=== PATIENT | female | born 1960 | race African-American/Black ===

== ENCOUNTER → 2016-04-18 | Emergency (ER) | payer OTHER ==
[~2016-04-18] VITALS: Ht 157.5 cm; Wt 77.0 kg
[~2016-04-18] MED LIST: ALBU8.5H2; ASPIRIN 81 MG CHEW (CHILDREN'S ASA) PO ONE; HYDR-3702 PO; KETOROLAC 30 MG/ML (TORADOL) 1 ML VIAL IV ONE; NITROGLYCERIN SUBLINGUAL 0.4 MG (NITROQUICK) TABLET SL ONE; TIOT18CA
--- OUTSIDE RECORDS SUMMARY | 2016-04-18 16:48 | XMS REPORT | Summary of Care ---
Author Author Kassi Garcia Organization Unknown Address [address] [place] [address] Phone Unavailable Care Team Providers Care Angular Developer Name Role Phone Kassi Garcia Unavailable Unavailable Unavailable Unavailable Functional Status Functional Status Health Issues Name Dates Details Functional status health issues are not documented Status: Cognitive Status Health Issues Name Dates Details Cognitive status health issues are not documented Status: Problems Name Dates Details Chronic obstructive pulmonary disease (496, J44.9) Status: Active Medications Name Dates Details ProAir HFA 108 (90 Base) MCG/ACT Inhalation Aerosol Solution inhale 1 to 2 puffs every 4 to 6 hours as needed. Quantity: 3 Refills: 3 Kassi Armando Started 13-May-2013 Active8.5 GM Inhaler Spiriva HandiHaler 18 MCG Inhalation Capsule INHALE CONTENTS OF 1 CAPSULE ONCE DAILY. Quantity: 3 Refills: 3 Kassi Armando Started 13-May-2013 [id number] Capsule Box Allergies and Adverse Reactions Name Dates Details No Known Drug Allergies Status: Active Procedures Procedure Dates Details Procedures not documented Immunization Name Dates Details Immunizations not documented Family History Unknown Family Member Name Dates Details No pertinent family history Comments: Family History Status: Active Social History Smoking StatusUnknown if ever smoked Vital Signs Date Test Result Details 14:42 BP Systolic 152 mm[Hg] Status: BP Diastolic 92 mm[Hg] Status: Heart Rate 88 /min Status: Weight 150 lb Status: O2 SAT 97 % Status: Body Mass Index Calculated 27.44 kg/m2 Status: Body Surface Area Calculated 1.69 m2 Status: Results Date Description Value Details Results not documented Plan of Care Planned Observations Name Dates Details Planned Goals not documented Goal Instructions Instructions not documented Encounters Appointment; Cheo Pimentel Encounter Diagnosis: Problem not documented On 14:30 Appointment; Cheo Pimentel Encounter Diagnosis: Problem not documented On 10-Mar-2014 14:30 Appointment; Cheo Pimentel Encounter Diagnosis: Problem not documented On 19-Aug-2013 13:30 Appointment; Cheo Pimentel Encounter Diagnosis: Problem not documented On 13-May-2013 13:00
[2016-04-18] MEDS: NITROGLYCERIN SUBLINGUAL 0.4 MG (NITROQUICK) TABLET SL PRN ×3 (17:28→18:05)
[2016-04-18 17:46] LABS: BASOPHILS % (AUTO) 0 % (0-2); EOSINOPHILS # (AUTO) 0.1 10^3uL; EOSINOPHILS % (AUTO) 2 % (0-4); LYMPHOCYTES # (AUTO) 2.4 X10^3; MEAN CORPUSCULAR HGB CONC 32.2 g/dL (31.0-37.0); MEAN PLATELET VOLUME 10.4 FL (6.0-9.5); MONOCYTES # (AUTO) 0.8 X10^3; MONOCYTES % (AUTO) 10 % (3-11); NEUTROPHILS # (AUTO) 4.8 X10^3; NEUTROPHILS % (AUTO) 58 % (51-67); PLATELET COUNT 270 10^3uL (150-450)
[2016-04-18 17:56] LABS: ALBUMIN 4.6 g/dL (3.4-5.0); ALKALINE PHOSPHATASE 97 U/L (38-126); BUN/CREATININE RATIO 14 (10-20); CALCULATED IONIZED CALCIUM 3.8 mg/dL (3.8-4.6); TOTAL PROTEIN 9.5 g/dL (6.4-8.5)
[2016-04-18 17:58] LABS: MEAN CORPUSCULAR HEMOGLOBIN 25.4 PG (26.0-34.0); MEAN CORPUSCULAR VOLUME 79 FL (80-100)
--- NOTE | 2016-04-18 18:07 | Diagnostic Imaging Report ---
INDICATION: Chest pain. Comparison with 08/19/2013. FINDINGS: The lungs are well-aerated. No infiltrates have developed. The heart is not enlarged. No pulmonary edema. No hilar adenopathy. No pneumothorax or pleural effusion. IMPRESSION: Normal portable chest. Dictated by: Dictated on workstation # [id number]
--- NOTE | 2016-04-18 19:02 | NUR ---
REPORT FROM Margot GRAYSON AND ASSUME CARE OF PT
--- NOTE | 2016-04-18 19:02 | NUR ---
Report given to Elida Corrales RN
--- NOTE | 2016-04-18 19:10 | NUR ---
CHANGED IV TUBING TO PRESSURIZED TUBING. INTRODUCED SELF TO PT TO LET HER KNOW I WAS TAKING OVER HER CARE
--- NOTE | 2016-04-18 19:50 | Diagnostic Imaging Report ---
PROCEDURE: CT angiography of the chest with contrast. TECHNIQUE: Multiple contiguous axial images were obtained through the chest after uneventful bolus administration of intravenous contrast. Reconstructed CTA MIP acquisitions were also performed. INDICATION: COPD with elevated d-dimer and chest pain. History of sarcoidosis. FINDINGS: The aorta and pulmonary arteries are well opacified. There are no filling defects to indicate pulmonary emboli at this time. No evidence of aortic aneurysm or dissection. The aortic root measures 3.7 cm. There is a spiculated mass in the left upper lobe medially extending to the hilum measuring approximately 2 x 2.5 cm in diameter. There is hilar adenopathy which is encasing the left upper lobe pulmonary arteries and bronchi. There is right suprahilar mass as well extending into the right hilum. No pneumothorax or pleural effusions. IMPRESSION: 1. No evidence of pulmonary emboli. 2. Bilateral hilar masses with hilar and mediastinal adenopathy. History of sarcoidosis would suggest these findings are likely secondary to chronic sarcoid changes. No CT is currently available for comparison. These findings were discussed with Dr. Florez in the ER. Dictated by: Dictated on workstation # [id number]
[2016-04-18 20:16] VITALS: BP 144/108
== END | disposition home or self-care (01) ==
LOC: ED 16:46
DX: R07.89 Other chest pain (principal)
CPT/HCPCS: 36415; 71010; 71275; 80053; 84484; 85025; 85379; 93005; J1885; Q9967; 93010; 96374; 99284; 99285